=== PATIENT | male | born 1990 | race African-American/Black ===

== ENCOUNTER 2017-11-26 21:39 | Emergency (ER) | payer SELFPAY ==
--- NOTE | 2017-11-26 21:48 | ED Physician Documentation ---
Chest Pain - HISTORIAN Historian: patient - HPI Stated Complaint: chest pain x 2 years Chief Complaint: General Adult Onset: other (over two years all together- worse over last day ) Timing: other (consistent over last two years ) Duration: constant Last known Well Date: 11/25/17 Last Known Well Time: 19:00 Last known Well Code/Unknown Code: Unknown Context: sleep, rest Severity: moderate Quality: sharp Chest Pain Radiation: no radiation Chest Pain Signs/Symptoms: nausea (just today for a "little bit" ) Worsened By: nothing Relieved By: nothing - ROS CONST: none MS/LYMPH: none GI/: none EYES/ENT: none SKIN/ENDO: none NEURO/PSYCH: none - PAST HX [place] risk factors: no pertinent history DVT/PE Risk Factors: none TAD/AAA risk factors: none Neuro deficit: none GI disease: none Lung disease: none Surgeries/Procedures: none Immunizations: UTD Allergies/Adverse Reactions: Allergies Allergy/AdvReac Type Severity Reaction Status Date / Time No Known Allergies Allergy Verified 11/26/17 23:18 Home Medications: Ambulatory Orders Medication Instructions Recorded Sertraline HCl [Zoloft] 25 mg PO 11/26/17 - SOCIAL HX Smoking History: non-smoker Drug Use: cocaine - FAMILY HX Family HX: none - REVIEWED ASSESSMENTS Nursing Assessment Reviewed: Yes Vitals Reviewed: Yes Progress - Progress Progress: 2300: reports no pain DG 2330: discussed the case with Dr Pavon DG 2357: Discussed with Dr Kwok [facility] (ER) He will accept pt for further eval DG ED Results Lab/Radiology - Radiology Radiology Impressions: HISTORY: 27-year-old male with chest pain. COMPARISON: None available TECHNIQUE: Single portable AP view of the chest was performed. FINDINGS: No pneumothorax, consolidative infiltrates, or pulmonary edema. The heart is not enlarged. No fractures are identified about the bony thorax. IMPRESSION: No acute cardiopulmonary process identified. Electronically signed on Nov 26, 2017 10:39:11 PM CDT by: Errol Maldonado TECHNIQUE: 3 mm contiguous axial images of the chest with contrast. Sagittal and coronal reconstructions. FINDINGS: The lungs show a right lower lobe benign-appearing 6 mm nodule associated with the oblique fissure.. There is no evidence of pulmonary infiltrate, pleural effusion or pneumothorax. The cardiac and mediastinal vascular structures enhance appropriately. The aorta and pulmonary arteries are normal in caliber. There is no evidence of pulmonary artery filling defect to suggest pulmonary embolism. The mediastinal contents are within normal limits. IMPRESSION: Normal mediastinal contents. 6 mm right lower lobe nodule associated with the oblique fissure probably a lymph node No evidence of acute pulmonary embolism. Electronically signed on Nov 26, 2017 11:39:49 PM CDT by: Gustavo Reed Chest Pain Physical Exam - EXAM General Appearance: no acute distress, alert EENT: eye inspection normal, ENT inspection normal Neck: nml inspection, no carotid bruit Respiratory: no resp. distress, chest non-tender, nml breath sounds, resp.distress CVS: reg. rate & rhythm, no friction rub, pulses equal, murmur Abdomen: soft, normal bowel sounds Skin: warm/dry, normal color Extremities: non-tender Neuro: oriented X3, CN's nml as tested, motor nml, sensation nml, mood/affect nml, cognition normal Discharge Clincal Impression: Chest pain Qualifiers: Chest pain type: unspecified Qualified Code(s): R07.9 - Chest pain, unspecified Referrals: Primary Doctor,No [Primary Care Provider] - 2 Days Comments: 0044: Pt states he will refuse to be transferred> AMA formed signed. The [place] was notified DG Condition: Fair Disposition: XFER SHT-TRM HOSP Decision to Admit: NO Date of Decison to Admit: 11/27/17 Decision Time: 00:02
[2017-11-26] MEDS ORDERED: ASPIRIN 81 MG CHEW TAB PO ONE (21:49)
[2017-11-26 22:21] LABS: BASOPHILS % 0.5 (0.0-1.5); EOSINOPHILS % 4.9 % (0.0-6.8); MEAN CORPUSCULAR VOLUME 92.9 fl (80.0-100.0); MONOCYTES % 4.8 % (0.0-11.0); NEUTROPHILS # 4.3 # k/uL (1.4-7.7)
[2017-11-26 22:26] VITALS: BP 125/70
[2017-11-26 22:38] LABS: eGFR (African) > 60; eGFR (Non-African) > 60
[2017-11-27 00:16] LABS: CANNABINOIDS NON NEGATIVE ng/mL (< 50); METHYLENEDIOXYMETHAMPHETAMINE NEGATIVE ng/mL (<500)
--- NOTE | 2017-11-27 06:54 | Diagnostic Imaging Report ---
VIJAY MOLINA [facility] [address] [facility] [address] [place], [place]. [address] Report Submission Date: Nov 26, 2017 10:39:11 PM CDT Patient Study Name: ROLANDA KO Date: Nov 26, 2017 10:06:57 PM CDT Modality Type: DX Gender: M Description: CHEST : 92 Institution: [facility] Physician: VIJAY MOLINA HISTORY: 27-year-old male with chest pain. COMPARISON: None available TECHNIQUE: Single portable AP view of the chest was performed. FINDINGS: No pneumothorax, consolidative infiltrates, or pulmonary edema. The heart is not enlarged. No fractures are identified about the bony thorax. IMPRESSION: No acute cardiopulmonary process identified. Electronically signed on Nov 26, 2017 10:39:11 PM CDT by: Errol WEST
--- NOTE | 2017-11-27 06:54 | Diagnostic Imaging Report ---
VIJAY MOLINA [facility] [address] [facility] [address] [place], [place]. [address] Report Submission Date: Nov 26, 2017 11:39:49 PM CDT Patient Study Name: ROLANDA KO Date: Nov 26, 2017 11:10:48 PM CDT Modality Type: CT\SR Gender: M Description: CT CHEST W/ CONTRAST : 92 Institution: [facility] Physician: VIJAY MOLINA CT chest with contrast Date of study: 2017 CLINICAL HISTORY: PATIENT STATES HAVING CHEST PAIN FOR A WHILE BUT ITS WORSE TODAY (Hx) / ITS.REASON chest pain Note time : 11/27/2017 12:24:15 AM User : Александр Ojeda CHEST PAIN (DICOM Hx) TECHNIQUE: 3 mm contiguous axial images of the chest with contrast. Sagittal and coronal reconstructions. FINDINGS: The lungs show a right lower lobe benign-appearing 6 mm nodule associated with the oblique fissure.. There is no evidence of pulmonary infiltrate, pleural effusion or pneumothorax. The cardiac and mediastinal vascular structures enhance appropriately. The aorta and pulmonary arteries are normal in caliber. There is no evidence of pulmonary artery filling defect to suggest pulmonary embolism. The mediastinal contents are within normal limits. IMPRESSION: Normal mediastinal contents. 6 mm right lower lobe nodule associated with the oblique fissure probably a lymph node No evidence of acute pulmonary embolism. Electronically signed on Nov 26, 2017 11:39:49 PM CDT by: Gustavo Reed [facility]
[2017-11-29 15:13] LABS: CANNABINOIDS CONFIRMATION >150 ng/mL (<15)
== END 2017-11-27 00:44 | disposition left against medical advice (07) ==
LOC: ED 21:39
DX: R07.9 Chest pain, unspecified (principal)
CPT/HCPCS: 71045; 71260; 80053; 80377; 82550; 84484; 85025; 85379; 99285; Q9967; G0481; S1016

== ENCOUNTER 2017-12-15 14:47 | Emergency (ER) | payer SELFPAY ==
--- NOTE | 2017-12-15 15:00 | ED Physician Documentation ---
Fall - HISTORIAN Historian: patient - HPI Stated Complaint: fall and hit head Chief Complaint: Fall Onset: just prior to arrival Where: other (on street running from law enforcement) Context: tripped Associated Symptoms:: no loss of consciousness Location of Pain/Injury: head, other (chest bilateral knees ) Injury to Right Extremity: shoulder, knee Injury to Left Extremity: knee, other (chest superficial abrasion bilatearal chest ) Further Comments: yes (per report from EMS and law enforcement present. He was running from law enforcement and he fell. No LOC. He states he is "ready to go home" . He denies any pain. He is unable to answer questions states " I smoke a lot") - ROS CONST: no problems NEURO: denies: dizziness, anxiety MS/SKIN/LYMPH: denies: weakness, numbness, back pain, rash EYES/ENT: denies: none CVS/RESP: denies: none GI/: denies: nausea, vomiting - PAST HX Past History: none Immunizations: UTD Allergies/Adverse Reactions: Allergies Allergy/AdvReac Type Severity Reaction Status Date / Time No Known Allergies Allergy Verified 12/15/17 15:00 Home Medications: Ambulatory Orders Medication Instructions Recorded Sertraline HCl [Zoloft] 25 mg PO DAILY 11/26/17 - SOCIAL HX Smoking History: non-smoker Alcohol Use: occasionally Drug Use: cocaine, marijuana - FAMILY HX Family History: none - VITAL SIGNS Vital Signs: Vital Signs Temp Pulse Resp BP Pulse Ox 125/70 11/26/17 21:40 - REVIEWED ASSESSMENTS Nursing Assessment Reviewed: Yes Vitals Reviewed: Yes Progress - Progress Progress: 1523: refusing sutures in the chin. States "hell no that will hurt I will heal" DG 1545: in bed talking. No complaints DG 1600: Continues with no complaints of pain. DG 1615: with discussion of discharge he states he is wanting his heart checked out from last visit (per notes he did leave AMA after being accepted for transfer to another facility) He has had no complaints of any pain prior. He states "you should finish checking my heart out now because I am in the ER. Discussed he had follow up set for the last visit. He did refuse that care and today he fell and the law enforcement brought him for that issue. He could follow up with his PCP on previous findings. States he does not have a PCP DG ED Results Lab/Radiology - Radiology Radiology Impressions: Head CT without contrast History: Status post fall Technique: Axial images were obtained from the skull base to the vertex without IV contrast. Findings: The ventricular system is normal in size and configuration. There is normal parenchymal attenuation. There is no positive mass effect or intra/ extraaxial hemorrhage. There is mucosal thickening of the right maxillary sinus. There is additionally an air fluid level of the right maxillary sinus. There is mild mucosal thickening of the left maxillary sinus and bilateral ethmoid air cells. Mastoid air cells and middle ear cavities are clear. The calvarium is intact. Impression: No acute intracranial abnormality. Findings consistent with chronic sinusitis as described. However, the air fluid level within the right maxillary sinus would be consistent with acute superimposed upon chronic right maxillary sinusitis. Electronically signed on Dec 15, 2017 3:28:55 PM CDT by: Sindi العراقي Examination: CT maxillofacial History: CT MAXILLOFACIAL, FALL TODAY WITH MULTIPLE ABRASIONS ON FACE (Hx) Comparison exams: None provided Technique: Axial imaging with sagittal and coronal reconstruction Findings: Medial and inferior orbital joyce are intact. Anterior and posterior maxillary joyce are also intact. Zygomatic arches without fracture. Right nasal bone lucency without displacement. Mandibular condyle are without irregularity. Significant opacification with air-fluid level of in the right maxillary sinus. Moderate mucous thickening involving the ethmoidal sinuses and left maxillary sinus. Remaining visualized osseous structures and soft tissue structures are without irregularity. Impression: Nondisplaced right nasal bone fracture. No orbital, mandibular condyle or maxillary bone fractures Significant right maxillary sinus opacification with air-fluid level - presumably inflammatory/infectious though posttraumatic fluid cannot be excluded. Electronically signed on Dec 15, 2017 4:06:39 PM CDT by: Elio Bauer - Orders Orders: ED Orders Category Date Time Status CT BRAIN W/O CONTRAST Stat Exams 12/15/17 Ordered Fall Physical Exam - Physical Exam General Appearance: no acute distress, alert Head: trauma (several abrasions on face ) Neck: non-tender, painless ROM Eye: HERNAN Resp/CVS: chest non-tender, breath sounds nml, no resp. distress, abrasion ( bilateral sides of chest - no drainage or bleeding ), other (murmur - he reports he has always had this murmur ) Abdomen: soft, normal bowel sounds Neuro: sensation nml, automobile parker nml, reflexes nml, automobile parker symmetrical, slurred speech (admits "I smoke a lot" ). No: facial asymmetry Skin: color nml, other (numerous abrasions on face. Approx 3 cm raised knot under left eye . Abrasions bilateral knees and superficial abrasions on chest - small bruise on mid/left chest . 2 cm laceration on the left chin. abrasion on right hand ) Back: normal inspection Extremities: atraumatic, hips non-tender, no pedal edema, nml ROM, nml color/ temp Joint: joints nml, nml ROM, Nml gait/weight bearing - John Coma Score Eyes Open: Spontaneous Speech: Inappropriate (cursing . talking about his care home time and girlfriend) Motor: Obeys Commands Discharge Clincal Impression: Closed nondisplaced fracture of nasal bone Qualifiers: Encounter type: initial encounter Qualified Code(s): S02.2XXA - Fracture of nasal bones, initial encounter for closed fracture Fall Qualifiers: Encounter type: initial encounter Qualified Code(s): W19.XXXA - Unspecified fall, initial encounter Referrals: Primary Doctor,No [Primary Care Provider] - 2 Days Additional Instructions: 1. Augmetin 875 mg/125 mg Take 1 by mouth BID X 10 days 2. Ibuprofen or Tylenol for pain as needed 3. Follow up with ENT next week for fracture care 4. Return to ER for any concerns Condition: Stable Disposition: 01 HOME, SELF-CARE Decision to Admit: NO Date of Decison to Admit: 12/15/17 Decision Time: 16:15
[2017-12-15 15:28] LABS: BASOPHILS % 0.4 (0.0-1.5); EOSINOPHILS % 1.2 % (0.0-6.8); MEAN CORPUSCULAR HEMOGLOBIN 30.6 pg (28.0-34.0); MEAN CORPUSCULAR VOLUME 91.5 fl (80.0-100.0); MONOCYTES % 4.2 % (0.0-11.0); NEUTROPHILS # 9.8 # k/uL (1.4-7.7)
[2017-12-15] MEDS ORDERED: DIPH,PERTUSS(ACELL),TET VAC/PF 0.5 ML DISP.SYRIN IM ONE (15:34)
[2017-12-15 15:41] LABS: eGFR (African) > 60; eGFR (Non-African) > 60
[2017-12-15 16:21] VITALS: BP 119/52
[2017-12-15 17:13] LABS: APPEARANCE,URINE CLOUDY (CLEAR); COLOR,URINE YELLOW (YELLOW); OCCULT BLOOD,URINE NEGATIVE (NEGATIVE)
[2017-12-15 17:14] LABS: CANNABINOIDS NON NEGATIVE ng/mL (< 50); METHYLENEDIOXYMETHAMPHETAMINE NEGATIVE ng/mL (<500)
--- NOTE | 2017-12-15 19:02 | Diagnostic Imaging Report ---
VIJAY MOLINA [facility] [address] [facility] [address] [place], [place]. [address] Report Submission Date: Dec 15, 2017 3:28:55 PM CDT Patient Study Name: ROLANDA KO Date: Dec 15, 2017 3:04:07 PM CDT Modality Type: CT\SR Gender: M Description: CT BRAIN W/O CONTRAST : 92 Institution: [facility] Physician: VIJAY MOLINA Head CT without contrast History: Status post fall Technique: Axial images were obtained from the skull base to the vertex without IV contrast. Findings: The ventricular system is normal in size and configuration. There is normal parenchymal attenuation. There is no positive mass effect or intra/ extraaxial hemorrhage. There is mucosal thickening of the right maxillary sinus. There is additionally an air fluid level of the right maxillary sinus. There is mild mucosal thickening of the left maxillary sinus and bilateral ethmoid air cells. Mastoid air cells and middle ear cavities are clear. The calvarium is intact. Impression: No acute intracranial abnormality. Findings consistent with chronic sinusitis as described. However, the air fluid level within the right maxillary sinus would be consistent with acute superimposed upon chronic right maxillary sinusitis. Electronically signed on Dec 15, 2017 3:28:55 PM CDT by: Sindi WEST
--- NOTE | 2017-12-15 19:03 | Diagnostic Imaging Report ---
VIJAY MOLINA [facility] [address] [facility] [address] [place], [place]. [address] Report Submission Date: Dec 15, 2017 4:06:39 PM CDT Patient Study Name: ROLANDA KO Date: Dec 15, 2017 3:40:03 PM CDT Modality Type: CT\SR Gender: M Description: CT MAXILLOFACIAL W/O D : 92 Institution: [facility] Physician: VIJAY MOLINA Examination: CT maxillofacial History: CT MAXILLOFACIAL, FALL TODAY WITH MULTIPLE ABRASIONS ON FACE (Hx) Comparison exams: None provided Technique: Axial imaging with sagittal and coronal reconstruction Findings: Medial and inferior orbital joyce are intact. Anterior and posterior maxillary joyce are also intact. Zygomatic arches without fracture. Right nasal bone lucency without displacement. Mandibular condyle are without irregularity. Significant opacification with air-fluid level of in the right maxillary sinus. Moderate mucous thickening involving the ethmoidal sinuses and left maxillary sinus. Remaining visualized osseous structures and soft tissue structures are without irregularity. Impression: Nondisplaced right nasal bone fracture. No orbital, mandibular condyle or maxillary bone fractures Significant right maxillary sinus opacification with air-fluid level - presumably inflammatory/infectious though posttraumatic fluid cannot be excluded. Electronically signed on Dec 15, 2017 4:06:39 PM CDT by: Elio WEST
== END 2017-12-15 16:18 | disposition home or self-care (01) ==
LOC: ED 14:47
DX: S02.2XXA Fracture of nasal bones, initial encounter for closed fracture (principal); W19.XXXA Unspecified fall, initial encounter; Y92.9 Unspecified place or not applicable; Y93.9 Activity, unspecified; Y99.9 Unspecified external cause status; Z23 Encounter for immunization
CPT/HCPCS: 70450; 70486; 80053; 80320; 80377; 81002; 85025; 90471; 90715; 99283; G0480; G0481